=== PATIENT | female | born 1995 | race Caucasian/White ===

== ENCOUNTER → 2018-05-27 | Outpatient (CLI) | payer OTHER ==
--- NOTE | 2018-05-30 09:39 | REP ---
CT internal auditory canals without contrast: History: Right-sided tinnitus. Technique: Helical scanning is acquired and 1 mm axial images are generated bone algorithm. Coronal MPR images are generated. CT findings: The visualized paranasal sinuses are clear. No evidence of mastoiditis. The internal auditory canals are normal and symmetric bilaterally. Otic capsule is intact. Vestibular and cochlear apparatus is normal bilaterally. The middle ear cavities are bilaterally fully aerated. No bony erosive change or abnormal soft tissue density is seen. Neither tympanic membrane appears to be displaced. The visualized intracranial and extracranial soft tissues are unremarkable. Impression: Normal internal auditory canal petrous bone CT study. Electronically Signed by Anshu Correa MD 05/30/2018 09:31 A
== END ==
LOC: M RAD 16:44
PROVIDERS: ATTEND Physician Assistant
DX: H93.11 Tinnitus, right ear (principal)